=== PATIENT | female | born 1950 | race Caucasian/White ===

== ENCOUNTER → 2017-08-02 | Outpatient (CLI) | payer OTHER, MEDICARE | LOC: FIMAGING 12:36 | DX: Z12.31 Encounter for screening mammogram for malignant neoplasm of breast (principal) | CPT/HCPCS: G0202 ==

== ENCOUNTER 2018-11-28 21:50 | Emergency (ER) | payer OTHER, MEDICARE ==
--- NOTE | 2018-11-28 22:16 | EDPHY ---
H & P Stated Complaint: SLIPPED AND FELL ONTO R ARM Time Seen by Provider: 11/28/18 22:15 HPI/ROS: HPI: This is a 68-year-old female who presents with Chief Complaint: SLIPPED AND FELL ONTO R ARM Location: Right posterior arm Quality: Injury Duration: 1 hr prior to arrival Signs and Symptoms: No bleeding, no radiation, no numbness, no weakness, no tingling, no incontinence, + decreased range of motion, no swelling, + pain, no fever Timing: Acute, constant Severity: Moderate Context: Patient is right-hand dominant, presents with walking outside over home onto the sidewalk and slipping on a patch of ice at the curb. Patient reports that she fell directly on her mid upper arm. She reports that she felt immediate, constant, radiating pain up into her shoulder and down into her elbow. Denies LOC/head injury/neck pain/dizziness/nausea/vomiting/amnesia. She was ambulatory at the scene and went back inside and took 2 Tylenol for pain relief. She then drove herself to the emergency room. Does not take blood thinners. Modifying Factors: Tylenol. Comment: ROS: A comprehensive 10 system review of systems is otherwise negative aside from elements mentioned in the history of present illness. MEDICAL/SURGICAL/SOCIAL HISTORY: Medical history: Generally healthy. Does not take any regular medications. Surgical history: Denies Social history: Former smoker. CONSTITUTIONAL: Polite and cooperative elderly white female, awake and alert, no obvious distress HEENT: Atraumatic and normocephalic. NECK: supple, no midline tenderness, flexion 45 degrees, extension 45 degrees, right and left lateral flexion 45 degrees. No meningismus. Cardiovascular: Normal S1/S2, regular rate, regular rhythm, without murmur rub or gallop. PULMONARY/CHEST: Symmetrical and nontender. no crepitus. Clear to auscultation bilaterally. Good air movement. No accessory muscle usage. ABDOMEN: Soft, nondistended, nontender, no ecchymosis. PELVIC: no pain with rocking; bilateral hips flexion 125 degrees, extension 30 degrees, with no pain internal rotation and no pain external rotation. BACK: No midline tenderness, no paraspinous spasm, deep tendon reflexes 2/2, no pain with straight leg raise, No foot drop. Achilles reflexes are equal bilaterally. Able to walk on heels and toes without difficulty. EXTREMITIES: 2/2 pulses, strength 5/5, right SHOULDER: Patient keeps her right arm with the elbow flexed at 90 across her chest. She refuses to move the arm secondary to pain. Wrist and fingers have full range of motion. DIP/ PIP/MCP flexion/extension intact with good light touch sensation. no deformities , no clubbing, no cyanosis or edema. NEUROLOGICAL: no focal neuro deficits. GCS 15. Light touch sensation intact. SKIN: Warm and dry, no erythema. no rash. Good capillary refill. Source: Patient Exam Limitations: No limitations - Personal History Current Tetanus/Diphtheria Vaccine: Yes Current Tetanus Diphtheria and Acellular Pertussis (TDAP): Yes - Medical/Surgical History Hx Asthma: No Hx Chronic Respiratory Disease: No Hx Diabetes: No Hx Cardiac Disease: No Hx Renal Disease: No Hx Cirrhosis: No Hx Alcoholism: No Hx HIV/AIDS: No Hx Splenectomy or Spleen Trauma: No Other PMH: DENIES - Social History Smoking Status: Former smoker Constitutional: Initial Vital Signs Temperature (C) 36.3 C 11/28/18 21:59 Heart Rate 78 11/28/18 21:59 Respiratory Rate 18 11/28/18 21:59 Blood Pressure 133/76 H 11/28/18 21:59 O2 Sat (%) 99 11/28/18 21:59 O2 Delivery Mode Room Air Allergies/Adverse Reactions: gluten Allergy (Verified 11/28/18 22:01) Home Medications: Medication Instructions Recorded SUMAtriptan [Imitrex 50 MG (*)] 25 - 100 mg PO DAILY PRN 05/14/15 Zolpidem Tartrate [Ambien 10 mg] 3 mg PO HS 05/14/15 oxyCODONE/APAP 5/325 [Percocet 1 - 2 tab PO Q4H PRN #10 tab 11/28/18 5/325 (*)] Medical Decision Making - Diagnostics Imaging Results: Imaging Impressions Humerus X-Ray 11/28/18 22:02 Impression: Transverse minimally displaced fracture of the surgical neck of the humerus. Procedures: Procedure: Splint placement. A right sling was applied by the Emergency Room therapy technician. After application of the splint I returned and re-examined the patient. The splint was adequately immobilizing the joint and distal to the splint the patient's circulation and sensation was intact. ED Course/Re-evaluation: Vital signs reviewed and stable upon arrival. Right humerus fracture ordered and oxycodone 10 mg given. Patient reports that she did not hit her head and does not take blood thinners. I suggested a head CT or cervical CT scan and patient says she has no pain and did not have an injury. Right humerus fracture shows minimally displaced proximal humeral neck fracture ED decision to consult Orthopedics. Spoke with Dr. Delarosa who advised sling, pain control and follow up with him in 2-3 days Given Percocet prepack. No signs of neurovascular compromise/tenting of skin/compartment syndrome/ extremities and joints examined above and below area of concern and are neurovascularly intact. This patient was seen under the supervision of my secondary supervising physician. I evaluated care for this patient independently. Discussed this patient with Dr. Charles who did not see the patient. Differential Diagnosis: Shoulder injury differential diagnosis includes but is not limited to clavicle fracture, contusion, AC joint separation, rotator cuff injury, labral tear, humeral head fracture, sprain, scapula fracture. - Data Points Medications Given: Discontinued Medications Oxycodone HCl (Oxycodone Ir) 10 mg PO EDNOW ONE Stop: 11/28/18 22:38 Last Admin: 11/28/18 23:18 Dose: Not Given Oxycodone/Acetaminophen (Percocet 5/325mg Prepack#4) 1 btl TAKEHOME EDNOW ONE Stop: 11/28/18 23:54 Last Admin: 11/28/18 23:59 Dose: 1 btl Departure - Departure Disposition: Home, Routine, Self-Care Clinical Impression: Closed fracture of neck of right humerus Qualifiers: Encounter type: initial encounter Qualified Code(s): S42.211A - Unspecified displaced fracture of surgical neck of right humerus, initial encounter for closed fracture Condition: Good Instructions: Oxycodone/Acetaminophen (By mouth), How to Use a Sling (ED), Proximal Humerus Fracture (ED) Additional Instructions: Wear the sling while out of bed until seen by Orthopedics. Take Tylenol 650 mg every 4 hours and/or Ibuprofen 600 mg every 8 hours with food as needed for pain. Use Percocet every 6 hours as needed for severe/break through pain. Do not use Tylenol and Percocet concomitantly. Apply ice for 30 minutes at a time; 2-3 times per day for the next 1-2 days. Follow up with Orthopedics in 5-7 days at which time they will evaluate and recommend with you if conservative management versus surgery is indicated. Follow-Up: Please follow-up as noted above. Follow-up sooner if your condition worsens or if you develop any new problems. Call as soon as possible for an appointment. Be clear when you call for an appointment that this is an Emergency Department follow-up. Contact the Emergency Department if you have trouble arranging follow-up care. Our referrals are not based on your insurance network. When time allows, contact your insurance carrier to verify the referral physician is in your plan. If not, get a referral for an in-network management specialist. Referrals: Porfirio Xiao MD [Medical Doctor] - As per Instructions Prescriptions: oxyCODONE/APAP 5/325 [Percocet 5/325 (*)] 1 - 2 tab PO Q4H PRN #10 tab PRN Reason: Pain, Severe
[2018-11-28] MEDS ORDERED: oxyCODONE IR 5 MG TAB PO ONE (22:37)
[2018-11-28 23:29] VITALS: BP 123/76
[2018-11-28] MEDS ORDERED: OXYCODONE/APAP 5/325MG PREPACK#4 BTL TAKEHOME ONE ×2 (23:53→23:54)
== END 2018-11-29 00:04 | disposition home or self-care (01) ==
DX: S42.211A Unspecified displaced fracture of surgical neck of right humerus, initial encounter for closed fracture (principal); W00.0XXA Fall on same level due to ice and snow, initial encounter; Y92.480 Sidewalk as the place of occurrence of the external cause; Y93.9 Activity, unspecified; Y99.9 Unspecified external cause status
CPT/HCPCS: 73060; 99283; A4565

== ENCOUNTER → 2019-01-25 | Outpatient (CLI) | payer OTHER, MEDICARE | LOC: FIMAGING 10:46 | PROVIDERS: ATTEND Orthopaedic Surgery | DX: Z13.820 Encounter for screening for osteoporosis (principal); M81.0 Age-related osteoporosis without current pathological fracture; Z82.62 Family history of osteoporosis; Z78.0 Asymptomatic menopausal state ==